=== PATIENT | male | born 1935 | race Caucasian/White ===

== ENCOUNTER 2022-05-08 08:48 | Day surgery (SDC) | payer MEDICARE, OTHER ==
[2022-05-08] MEDS ORDERED: Dexamethasone 4 MG/ML SDV IV ONE (08:49)
[2022-05-08] MEDS ORDERED: Sodium Chloride 0.9% 10 ML Syringe IV ONE (08:49)
[2022-05-08] MEDS ORDERED: Midazolam 1 MG/ML 2 ML SDV IV ONE (08:49)
[2022-05-08] MEDS ORDERED: Timolol Maleate 0.5% Ophth Soln 5 ML Bottle EYELF ONE (09:00)
[2022-05-08] MEDS ORDERED: Acetaminophen/Codeine 300-30 MG Tab PO PRN (09:00)
[2022-05-08] MEDS ORDERED: Tropicamide 1% Ophth Soln 15 ML Bottle EYELF ONE (09:00)
[2022-05-08] MEDS ORDERED: Povidone-Iodine 5% Sterile Ophth Soln 30 ML Bottle EYELF ONE ×2 (09:00→10:09)
[2022-05-08] MEDS ORDERED: Acetaminophen 325 MG Tab PO PRN (09:00)
[2022-05-08] MEDS ORDERED: Sodium Chloride 0.9% 10 ML Syringe FLUSH PRN (09:00)
[2022-05-08] MEDS ORDERED: Ondansetron 4 MG/2 ML SDV IVPUSH PRN (09:00)
[2022-05-08] MEDS ORDERED: Cataract Ophth Solution EYELF ONE (09:00)
[2022-05-08] MEDS ORDERED: Phenylephrine 10% Ophth Soln 5 ML Bot EYELF PRN (09:00)
[2022-05-08] MEDS ORDERED: Moxifloxacin 0.5% Ophth Soln 3 ML Bottle EYELF ONE (09:00)
[2022-05-08] MEDS ORDERED: Proparacaine 0.5% Ophth Soln 15 ML Bottle EYELF ONE (09:00)
[2022-05-08] MEDS ORDERED: Tetracaine HCl/PF 0.5% 4 ML Bottle EYELF ONE (10:07)
[2022-05-08] MEDS ORDERED: Apraclonidine 0.5% Ophth Soln 5 ML Bot EYELF ONE (10:10)
[2022-05-08] MEDS ORDERED: Diclofenac Sodium 0.1% Ophth Soln 5 ML Bottle EYELF ONE (10:11)
[2022-05-08] MEDS ORDERED: Dexamethasone/Neomycin/Polymyxin B Ophth Oint 3.5 GM Tube EYELF ONE (10:13)
[2022-05-08] MEDS ORDERED: Lidocaine 1% 30 ML SDV ONE (10:14)
[2022-05-08] MEDS ORDERED: Dexamethasone 4 MG/ML SDV IOCULAR ONE (10:14)
[2022-05-08] MEDS ORDERED: Chondroitin Sulfate/Hyaluronate Sodium Ophth Inj 0.75 ML Syringe EYELF ONE (10:14)
[2022-05-08] MEDS ORDERED: Balanced Salt Solution Ophth Irrig 500 ML Bottle IOCULAR ONE (10:15)
[2022-05-08] MEDS ORDERED: Vancomycin 500 MG SDV EYELF ONE (10:16)
== END 2022-05-08 11:05 | disposition home or self-care (01) ==
LOC: DL.SDS 08:48
PROVIDERS: ATTEND Ophthalmology
DX: E11.36 Type 2 diabetes mellitus with diabetic cataract (principal); H25.812 Combined forms of age-related cataract, left eye; I10 Essential (primary) hypertension; D50.0 Iron deficiency anemia secondary to blood loss (chronic); E78.5 Hyperlipidemia, unspecified; I25.10 Atherosclerotic heart disease of native coronary artery without angina pectoris; D64.9 Anemia, unspecified; F03.90 Unspecified dementia, unspecified severity, without behavioral disturbance, psychotic disturbance, mood disturbance, and anxiety; Z98.890 Other specified postprocedural states; Z79.84 Long term (current) use of oral hypoglycemic drugs; Z79.82 Long term (current) use of aspirin; Z79.899 Other long term (current) drug therapy; Z79.02 Long term (current) use of antithrombotics/antiplatelets; Z88.6 Allergy status to analgesic agent; Z88.1 Allergy status to other antibiotic agents; Z87.891 Personal history of nicotine dependence
CPT/HCPCS: 00142; 66982; A9270; J1100; J2250; J3370; J3490; V2632

== ENCOUNTER 2022-05-22 08:46 | Day surgery (SDC) | payer MEDICARE, OTHER ==
[2022-05-22] MEDS ORDERED: Midazolam 1 MG/ML 2 ML SDV IV ONE (08:47)
[2022-05-22] MEDS ORDERED: Dexamethasone 4 MG/ML SDV IV ONE (08:47)
[2022-05-22] MEDS ORDERED: Sodium Chloride 0.9% 10 ML Syringe IV ONE (08:47)
[2022-05-22] MEDS ORDERED: Acetaminophen 325 MG Tab PO PRN (09:00)
[2022-05-22] MEDS ORDERED: Proparacaine 0.5% Ophth Soln 15 ML Bottle EYERT ONE (09:00)
[2022-05-22] MEDS ORDERED: Phenylephrine 10% Ophth Soln 5 ML Bot EYERT PRN (09:00)
[2022-05-22] MEDS ORDERED: Povidone-Iodine 5% Sterile Ophth Soln 30 ML Bottle EYERT ONE ×2 (09:00→10:26)
[2022-05-22] MEDS ORDERED: Tropicamide 1% Ophth Soln 15 ML Bottle EYERT ONE (09:00)
[2022-05-22] MEDS ORDERED: Sodium Chloride 0.9% 10 ML Syringe FLUSH PRN (09:00)
[2022-05-22] MEDS ORDERED: Cataract Ophth Solution EYERT ONE (09:00)
[2022-05-22] MEDS ORDERED: Ondansetron 4 MG/2 ML SDV IVPUSH PRN (09:00)
[2022-05-22] MEDS ORDERED: Moxifloxacin 0.5% Ophth Soln 3 ML Bottle EYERT ONE (09:00)
[2022-05-22] MEDS ORDERED: Timolol Maleate 0.5% Ophth Soln 5 ML Bottle EYERT ONE (09:00)
[2022-05-22] MEDS ORDERED: Acetaminophen/Codeine 300-30 MG Tab PO PRN (09:00)
[2022-05-22] MEDS ORDERED: Tetracaine HCl/PF 0.5% 4 ML Bottle EYERT ONE (10:26)
[2022-05-22] MEDS ORDERED: Apraclonidine 0.5% Ophth Soln 5 ML Bot EYERT ONE (10:27)
[2022-05-22] MEDS ORDERED: Diclofenac Sodium 0.1% Ophth Soln 5 ML Bottle EYERT ONE (10:29)
[2022-05-22] MEDS ORDERED: Dexamethasone/Neomycin/Polymyxin B Ophth Oint 3.5 GM Tube EYERT ONE (10:30)
[2022-05-22] MEDS ORDERED: Lidocaine 1% 30 ML SDV ONE (10:31)
[2022-05-22] MEDS ORDERED: Balanced Salt Solution Ophth Irrig 500 ML Bottle IOCULAR ONE (10:31)
[2022-05-22] MEDS ORDERED: Dexamethasone 4 MG/ML SDV ONE (10:33)
[2022-05-22] MEDS ORDERED: Vancomycin 500 MG SDV EYERT ONE (10:33)
[2022-05-22] MEDS ORDERED: Chondroitin Sulfate/Hyaluronate Sodium Ophth Inj 0.75 ML Syringe EYERT ONE (10:33)
== END 2022-05-22 11:35 | disposition home or self-care (01) ==
LOC: DL.SDS 08:46
PROVIDERS: ATTEND Ophthalmology
DX: E11.36 Type 2 diabetes mellitus with diabetic cataract (principal); H25.811 Combined forms of age-related cataract, right eye; I10 Essential (primary) hypertension; I25.10 Atherosclerotic heart disease of native coronary artery without angina pectoris; E78.00 Pure hypercholesterolemia, unspecified; R05.9 Cough, unspecified; R09.3 Abnormal sputum; K21.9 Gastro-esophageal reflux disease without esophagitis; F03.90 Unspecified dementia, unspecified severity, without behavioral disturbance, psychotic disturbance, mood disturbance, and anxiety; Z98.890 Other specified postprocedural states; Z79.899 Other long term (current) drug therapy; Z79.84 Long term (current) use of oral hypoglycemic drugs; Z88.8 Allergy status to other drugs, medicaments and biological substances
CPT/HCPCS: 00142; 66984; A9270; J1100; J2250; J3370; J3490; V2632